=== PATIENT | male | born 1990 | race Caucasian/White ===

== ENCOUNTER 2016-02-28 13:15 | Emergency (ER) | payer OTHER ==
[~2016-02-28] VITALS: Ht 172.7 cm; Wt 102.1 kg
[~2016-02-28 13:15] MED LIST: ALPRAZOLAM OD0.25 MG PO; CITALOPRAM HBR20 MG PO; OMEPRAZOLE40 MG PO
[2016-02-28 13:21] VITALS: BP 133/82
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
[2016-02-28] MEDS ORDERED: PREDNISONE10 M2 PO (13:52)
[2016-02-28] MEDS ORDERED: AUGMENTIN 875-1 EACH PO (13:52)
== END 2016-02-28 13:55 ==
LOC: ERH 13:15
DX: S51.851A Open bite of right forearm, initial encounter (principal); S51.852A Open bite of left forearm, initial encounter; L50.9 Urticaria, unspecified; Y04.1XXA Assault by human bite, initial encounter
CPT/HCPCS: 90471; 90714